=== PATIENT | female | born 1950 | race Caucasian/White ===

== ENCOUNTER → 2017-09-06 | Outpatient (CLI) | payer OTHER | LOC: FIMAGING 12:43 | PROVIDERS: ATTEND Orthopaedic Surgery | DX: Z01.818 Encounter for other preprocedural examination (principal); M17.12 Unilateral primary osteoarthritis, left knee ==

== ENCOUNTER 2017-09-18 06:00 | Inpatient (IN) | payer OTHER ==
[~2017-09-18 06:00] MED LIST: BUPI/epINEPH/KETOROLAC IU ONE; ROPIVACAINE 0.2% 80 MG, EPINEPHrine 0.2 MG, KETOROLAC TROMETHAMINE 30 MG in SYRINGE 0 ML IU ONE; TRANEXAMIC ACID 3,000 MG in NS (SYRINGE) 50 ML IRR ONE
[2017-09-18] MEDS ORDERED: FAMOTIDINE 20 MG TAB PO ONE (06:13)
[2017-09-18] MEDS ORDERED: ceFAZolin 2 GM/SWFI 2 GM/20 ML SYR IVP ONE (06:13)
[2017-09-18] MEDS ORDERED: DEXAMETHASONE 4 MG/ML VIAL IVP ONE (06:13)
[2017-09-18] MEDS ORDERED: ACETAMINOPHEN 325 MG TAB PO ONE (06:13)
[2017-09-18] MEDS ORDERED: LR 1,000 ML IV ONE (06:14)
[2017-09-18] MEDS ORDERED: LIDOCAINE 1% 2 ML INJ ID PRN (06:14)
[2017-09-18] MEDS ORDERED: TRANEXAMIC ACID 3,000 MG/50 ML BAG IRR ONE (06:36)
[2017-09-18] MEDS ORDERED: PROPOFOL/EMULSION 500 MG/50 ML BOTTLE IV ONE (06:50)
[2017-09-18] MEDS ORDERED: MIDAZOLAM 2 MG/2 ML VIAL IVP ONE (06:58)
--- NOTE | 2017-09-18 06:58 | PDANEPAE ---
ANE History of Present Illness here for robotic TKA ANE Past Medical History - Cardiovascular History Hx Hypertension: Yes Hx Arrhythmias: No Hx Chest Pain: No Hx Coronary Artery / Peripheral Vascular Disease: No Hx CHF / Valvular Disease: No Hx Palpitations: No - Pulmonary History Hx COPD: No Hx Asthma/Reactive Airway Disease: No Hx Recent Upper Respiratory Infection: No Hx Oxygen in Use at Home: No Hx Sleep Apnea: No - Neurologic History Hx Cerebrovascular Accident: No Hx Seizures: No Hx Dementia: No - Endocrine History Hx Diabetes: No Endocrine History Comment: HYPOTHYROID - Renal History Hx Renal Disorders: No - Liver History Hx Hepatic Disorders: No - Neurological & Psychiatric Hx Hx Neurological and Psychiatric Disorders: Yes Neurological / Psychiatric History Comment: ANXIETY/DEPRESSION. FIBROMYALGIA - Cancer History Hx Cancer: No - Congenital Disorder History Hx Congenital Disorders: No - GI History Hx Gastrointestinal Disorders: Yes Gastrointestinal History Comment: REFLUX. INTERMITTENT NAUSEA - Other Health History Other Health History: LEG CRAMPS - Chronic Pain History Chronic Pain: Yes (LT KNEE) - Surgical History Prior Surgeries: LUMBAR FUSION 2011. RT SHLDR RTC. DIAG LAP ECTOPIC PREG, ENDOMETROSIS,TUBAL RECONSTRUCTION. RT OVARIAN CYSTECTOMY. HERNAN BUNIONECTOMY X2 ANE Review of Systems Review of Systems: - Exercise capacity METS (RN): 4 METS ANE Patient History - Allergies Allergies/Adverse Reactions: amlodipine Allergy (Verified 09/06/17 16:28) LEG SWELLING hydrochlorothiazide Allergy (Verified 09/06/17 16:28) LEG SWELLING,RASH NSAIDS (Non-Steroidal Anti-Inflamma Allergy (Verified 09/06/17 16:28) OVERLY SENSITIVE - Home Medications Home Medications: Atenolol HS 09/06/17 [Last Taken 09/17/17 20:00] Flonase Nasal Hailey BID 09/06/17 [Last Taken 09/18/17 05:00] LORAZEPAM TID PRN 09/06/17 [Last Taken 09/17/17 22:30] Lomotil Tab (*) PRN 09/06/17 [Last Taken Unknown] Omeprazole BID 09/06/17 [Last Taken 09/18/17 05:00] Promethazine HCl PRN 09/06/17 [Last Taken 09/16/17] Synthroid DAILY06 09/06/17 [Last Taken 09/17/17 03:00] Wellbutrin Xl DAILY06 09/06/17 [Last Taken 09/18/17 05:00] ZYRTEC DAILY06 09/06/17 [Last Taken 09/18/17 05:00] - NPO status NPO Since - Liquids (Date): 09/17/17 NPO Since - Liquids (Time): 23:55 NPO Since - Solids (Date): 09/17/17 NPO Since - Solids (Time): 23:55 - Anes Hx Anes Hx: post operative nausea - Smoking Hx Smoking Status: Never smoked - Alcohol Use Alcohol Use: None - Family Anes Hx Family Anes Hx: none ANE Labs/Vital Signs - Vital Signs Blood Pressure: 135/82 Heart Rate: 72 Respiratory Rate: 16 O2 Sat (%): 97 Height: 157.48 cm Weight: 66.224 kg ANE Physical Exam - Airway Neck exam: FROM Mallampati Score: Class 2 Mouth exam: normal dental/mouth exam - Pulmonary Pulmonary: no respiratory distress, clear to auscultation - Cardiovascular Cardiovascular: regular rate and rhythym, no murmur, rub, or gallop - ASA Status ASA Status: II ANE Anesthesia Plan Anesthesia Plan: GA with mask, spinal Regional Anesthesia: single shot NB, adductor canal FNB Total IV Anesthesia: Yes
--- NOTE | 2017-09-18 07:10 | PDHPUP ---
History & Physical Update H&P update statement: This history and physical update is based on an assessment of the patient which was completed after admission or registration (within 24 hours), but prior to the surgery/procedure. H&P update: H&P reviewed & patient examined, no change in patient's condition since H&P completed
[2017-09-18] MEDS ORDERED: VANCOMYCIN 1 GM VIAL ONE (07:18)
[2017-09-18] MEDS ORDERED: PROPOFOL 200 MG/20 ML VIAL ONE (08:13)
[2017-09-18] MEDS ORDERED: ONDANSETRON DISINTEGRATING 4 MG TAB PO PRN (08:37)
[2017-09-18] MEDS ORDERED: BISACODYL 10 MG SUPP PR PRN (08:37)
[2017-09-18] MEDS ORDERED: POLYETHYLENE GLYCOL 3350 17 GM PKT PO PRN (08:37)
[2017-09-18] MEDS ORDERED: METOCLOPRAMIDE 10 MG/2 ML VIAL IVP PRN (08:37)
[2017-09-18] MEDS ORDERED: PROMETHAZINE HCL 25 MG/ML INJ IVP PRN (08:37)
[2017-09-18] MEDS ORDERED: ONDANSETRON 4 MG/2 ML VIAL IVP PRN ×2 (08:37→08:58)
[2017-09-18] MEDS ORDERED: PROMETHAZINE HCL 25 MG SUPPR PR PRN (08:37)
[2017-09-18] MEDS ORDERED: MAGNESIUM HYDROXIDE 30 ML UDCUP PO PRN (08:37)
[2017-09-18] MEDS ORDERED: TEMAZEPAM 15 MG CAP PO PRN (08:37)
[2017-09-18] MEDS ORDERED: DIPHENOXYLATE/ATROPINE LOMOTIL 1 TAB PO PRN ×2 (08:37→12:42)
[2017-09-18] MEDS ORDERED: diphenhydrAMINE 25 MG CAP PO PRN (08:37)
[2017-09-18] MEDS ORDERED: LACTULOSE 20 GM/30 ML UDCUP PO PRN (08:37)
--- NOTE | 2017-09-18 08:44 | POSTOPPROG ---
Post Op Note Date of Operation: 09/18/17 Surgeon: Prudence Ruiz Mule Packer: dipti ruiz Anesthesiologist: dr. victoria Anesthesia: Spinal Pre-op Diagnosis: left knee OA Post-op Diagnosis: same Indication: left knee pain due to OA that failed conservative measures Procedure: L TKA robot assisted Findings: severe knee OA Inf/Abcess present in the surg proc area at time of surgery?: No EBL: 50-100
[2017-09-18] MEDS ORDERED: ACETAMINOPHEN 500 MG TAB PO PRN (08:58)
[2017-09-18] MEDS ORDERED: fentaNYL 100 MCG/2 ML INJ IVP PRN (08:58)
[2017-09-18] MEDS ORDERED: NALOXONE HCL 0.4 MG/ML INJ IVP PRN (08:58)
[2017-09-18] MEDS ORDERED: OXYCODONE/APAP 5/325 TAB PO PRN (08:58)
[2017-09-18] MEDS ORDERED: LR 1,000 ML IV SCH (09:00)
[2017-09-18] MEDS ORDERED: ASPIRIN 81 MG CHEWABLE TAB PO SCH (09:00)
--- NOTE | 2017-09-18 09:00 | POSTANESTH ---
Post Anesthetic Evaluation Cardiovascular Status: Normal, Stable, Similar to Pre-Op Cond Respiratory Status: Normal, Stable, Similar to Pre-op Cond. Level of Consciousness/Mental Status: Can Participate in Eval, Alert and Oriented Pain Control: Adequate, Prn Tx Ordered Nausea/Vomiting Control: Adequate, Prn Tx Ordered Complications Possibly Related to Anesthesia: None Noted
[2017-09-18] MEDS ORDERED: OXYCODONE/APAP 5/325 TAB ONE (09:45)
[2017-09-18] MEDS ORDERED: PETROLAT,WHT/MIN OIL/SOD CHL 3.5 GM OPHT.OINT EACHEYE PRN (09:57)
[2017-09-18] MEDS: SENNOSIDES/DOCUSATE SODIUM TAB PO SCH ×2 (10:32→20:25)
[2017-09-18] MEDS: ACETAMINOPHEN 325 MG TAB PO SCH ×2 (11:56→17:42)
[2017-09-18] MEDS ORDERED: AMITRIPTYLINE PO PRN (12:42)
[2017-09-18] MEDS ORDERED: CHLORDIAZEPOXIDE PO PRN (12:42)
[2017-09-18] MEDS ORDERED: LORazepam 1 MG TAB PO PRN (12:42)
[2017-09-18] MEDS: ceFAZolin 2 GM/SWFI 2 GM/20 ML SYR IVP SCH ×2 (13:27→21:57)
[2017-09-18] MEDS: oxyCODONE IR 5 MG TAB PO PRN ×4 (13:28→21:17)
[2017-09-18] MEDS ORDERED: ceFAZolin 2 GM/DEXTROSE 100 ML IV SCH (14:00)
--- NOTE | 2017-09-18 16:59 | GOP ---
[f rep st] OPERATIVE REPORT DATE OF OPERATION: 09/18/2017 SURGEON: Sahara Metzger MD SAUTE CHEF: Maisha Metzger PA-C. ANESTHESIA: Spinal. PREOPERATIVE DIAGNOSIS: Left knee osteoarthritis. POSTOPERATIVE DIAGNOSIS: Left knee osteoarthritis. PROCEDURE PERFORMED: FINDINGS: ESTIMATED BLOOD LOSS: 30 cc. Patient is a 67-year-old female. DESCRIPTION OF PROCEDURE: Left total knee arthroplasty, robotic assist. TOURNIQUET: 250 mmHg. semi-flexed superior pole of the patella shows a type 2 VMO pathology, severe lateral singh llofemoral osteoarthritis, size 3 femur, size 3 tibia, 32 mm patellar button, 9 mm polyethylene cemen hayley components. /[id number]/MODL
[2017-09-18] MEDS: CYCLOBENZAPRINE 10 MG TAB PO PRN (20:24)
[2017-09-18] MEDS: FAMOTIDINE 20 MG TAB PO SCH (20:24)
[2017-09-18] MEDS: PANTOPRAZOLE SODIUM 40 MG TAB PO SCH (20:24)
[2017-09-18] MEDS: ASPIRIN 81 MG CHEWABLE TAB PO SCH (20:25)
[2017-09-18] MEDS ORDERED: ATENOLOL 50 MG TAB PO SCH (21:00)
[2017-09-19] MEDS: ACETAMINOPHEN 325 MG TAB PO SCH ×3 (00:34→12:14)
[2017-09-19] MEDS: oxyCODONE IR 5 MG TAB PO PRN ×5 (00:36→15:18)
[2017-09-19] MEDS ORDERED: LEVOTHYROXINE 25 MCG TAB PO SCH (06:00)
--- NOTE | 2017-09-19 08:47 | SOAPPROG ---
SOAP Progress Note Assessment/Plan: Assessment: Patient is doing well POD 1 s/p L TKA 1) pain management: pain is well controlled on oral pain meds especially since she did not receive an adductor canal block yesterday. She has not taken max amount of oxycodone ordered, yet pain is well controlled and patient is resting comfortably 2) VTE ppx: recommend ASA 81 mg BID for 4 weeks 3) anemia: level expected initially postop. asymptomatic. continue to monitor 4) drop foot:difficulty dorsiflexion on left foot. most likely due to periarticular injection during surgery. Some confusion as to what leg per nurse. Currently appears to be left foot. This usually wears off 24 hours from surgery. continue to monitor. Progress with walking when safe to do so. Patient is afraid of putting weight on surgical leg, encouraged patient to put weight. There are no restrictions on weight bearing status. 5) Fibromyalgia: patient states that it has flared since surgery. She was on norco several months prior to surgery due to fibromyalgia. patient was seen by chronic pain clinic prior to surgery who recommended lyrica, patient states she gained weight with gabapentin and does not want to try. Patient states she was evaluated by Dr. Jackson, a psychiatrist, who will help her manage fibromyalgia postoperatively along with her PCP. 6) d/c planning: patient's pain is well controlled, recommend patient work with PT today, will most likely need morning and afternoon session. may d/c to home pending release from PT. 7) inpatient: patient requires inpatient status due to pain control, therapy, unsafe yesterday for d/c to home. Plan: 09/19/17 08:36 09/19/17 08:49 09/19/17 08:49 Subjective: Dinora is doing well, pain well controlled, denies SOB, chest pain and N/V. state fibromyalgia has flared since surgery Objective: Vital Signs Temp Pulse Resp BP Pulse Ox 36.7 C 70 16 144/76 H 96 09/19/17 08:00 09/19/17 08:00 09/19/17 08:00 09/19/17 08:00 09/19/17 08:00 Laboratory Results 09/19/17 04:54 09/18/17 09/19/17 09/20/17 05:59 05:59 05:59 Intake Total 2520 Output Total 2550 400 Balance -30 -400 LLE: incision dressing is clean and dry, NVI, +pf/df ICD10 Worksheet Patient Problems: Problems Problem Status Onset Primary osteoarthritis of left knee Acute - ICD10 Problem Qualifiers (1) Primary osteoarthritis of left knee
[2017-09-19] MEDS ORDERED: buPROPion XL 150 MG TAB PO SCH (09:00)
[2017-09-19] MEDS ORDERED: FLUTICASONE NASAL 120 SPRAYS/16 GM MDI EACHNARE SCH (09:00)
[2017-09-19] MEDS ORDERED: CETIRIZINE 10 MG TAB PO SCH (09:00)
[2017-09-19] MEDS: PANTOPRAZOLE SODIUM 40 MG TAB PO SCH (09:01)
[2017-09-19] MEDS: ASPIRIN 81 MG CHEWABLE TAB PO SCH (09:03)
[2017-09-19] MEDS: FAMOTIDINE 20 MG TAB PO SCH (09:04)
[2017-09-19] MEDS: SENNOSIDES/DOCUSATE SODIUM TAB PO SCH (09:04)
--- NOTE | 2017-09-19 09:37 | PDMN ---
Medical Necessity Medical necessity: Change to IP, as of 09/18/17, per PA; los >2 mn s/p L TKA; pt currently unsafe to dc home; admit for further monitoring of L drop foot, pain management & therapies; per progress note & order 09/18/17
[2017-09-19] MEDS: CYCLOBENZAPRINE 10 MG TAB PO PRN (11:21)
[2017-09-19 12:04] VITALS: RESP 14
--- NOTE | 2017-09-19 13:48 | GDS ---
[f rep st] DISCHARGE SUMMARY ADMISSION DIAGNOSIS: Left knee osteoarthritis. DISCHARGE DIAGNOSIS: Left knee osteoarthritis. PROCEDURE: Left total knee arthroplasty, robot assisted. VTE PROPHYLAXIS: Recommend aspirin 81 mg twice daily for 4 weeks. BRIEF DESCRIPTION OF HOSPITAL STAY: Patient was admitted for an elective joint arthroplasty. The pa maximino tolerated the procedure well and has passed physical therapy. The patient was given appropriat e antibiotic prophylaxis and venous thromboembolism prophylaxis. The patient's pain was well control led on oral pain medication, patient was holding down food, and had urinated. Decision was made to d ischarge the patient. The patient was given post-operative prescriptions pre-operatively. PLAN: Follow up as scheduled Dr. Metzger's office in 2 weeks. /[id number]/MODL
[2017-09-19 15:04] VITALS: BP 133/80; PULSE 82; TEMP 97.5; O2SAT 97
== END 2017-09-19 17:32 | disposition home or self-care (01) | DRG 470 ==
LOC: F3N 06:00 → OBSVTOIN 11:38
PROVIDERS: ADMIT Orthopaedic Surgery; ATTEND Orthopaedic Surgery
PROC: 8E0Y0CZ Robotic Assisted Procedure of Lower Extremity, Open Approach (ICD-10-PCS; principal; 2017-09-18 07:15)
PROC: 0SRD0J9 Replacement of Left Knee Joint with Synthetic Substitute, Cemented, Open Approach (ICD-10-PCS; principal; 2017-09-18 07:15)
DX: M17.12 Unilateral primary osteoarthritis, left knee (principal); M79.7 Fibromyalgia
CPT/HCPCS: 97110-GP; 97116-GP; 97161-GP; 97166-GO; 97530-GP; 97535-GO; C1713; G8978-GP-CJ; G8979-GP-CI; G8980-GP-CI; G8987-GO-CI; G8988-GO-CI; J0171; J0690; J1100; J1885; J2250; J2704; J3370

== ENCOUNTER → 2017-11-14 | Outpatient (CLI) | payer OTHER | LOC: BMCIMAGING 11:25 | PROVIDERS: ATTEND Internal Medicine | DX: M79.671 Pain in right foot (principal); M19.071 Primary osteoarthritis, right ankle and foot ==

== ENCOUNTER → 2018-01-20 | Outpatient (CLI) | payer OTHER | LOC: BMCIMAGING 10:25 | PROVIDERS: ATTEND Internal Medicine | DX: N63.13 Unspecified lump in the right breast, lower outer quadrant (principal); R92.8 Other abnormal and inconclusive findings on diagnostic imaging of breast ==

== ENCOUNTER → 2018-02-10 | Outpatient (CLI) | payer OTHER ==
[~2018-02-10] MED LIST changes: -BUPI/epINEPH/KETOROLAC IU ONE; +BUPIVACAINE 0.5% 10 ML SDV ONE; +LIDOCAINE 1% 300 MG/30 ML SDV ONE; -ROPIVACAINE 0.2% 80 MG, EPINEPHrine 0.2 MG, KETOROLAC TROMETHAMINE 30 MG in SYRINGE 0 ML IU ONE; +THROMBIN (BOVINE) 5,000 UNIT VIAL TP ONE; -TRANEXAMIC ACID 3,000 MG in NS (SYRINGE) 50 ML IRR ONE
== END ==
LOC: FIMAGING 07:30
PROVIDERS: ATTEND Internal Medicine
PROC: 0HBT3ZX Excision of Right Breast, Percutaneous Approach, Diagnostic (ICD-10-PCS; principal; 2018-02-10)
DX: N60.11 Diffuse cystic mastopathy of right breast (principal); Z80.3 Family history of malignant neoplasm of breast

== ENCOUNTER → 2018-05-01 | Outpatient (CLI) | payer OTHER | LOC: FIMAGING 11:37 | PROVIDERS: ATTEND Internal Medicine | DX: Z13.820 Encounter for screening for osteoporosis (principal); M85.89 Other specified disorders of bone density and structure, multiple sites; E03.9 Hypothyroidism, unspecified; Z78.0 Asymptomatic menopausal state ==

== ENCOUNTER → 2018-05-26 | Outpatient (CLI) | payer OTHER | LOC: FIMAGING 10:46 | PROVIDERS: ATTEND Orthopaedic Surgery | DX: M17.11 Unilateral primary osteoarthritis, right knee (principal) ==

== ENCOUNTER 2018-06-18 05:59 | Inpatient (IN) | payer OTHER ==
[2018-06-18] MEDS ORDERED: TRANEXAMIC ACID 3,000 MG in NS (SYRINGE) 50 ML IRR ONE (06:00)
[2018-06-18] MEDS ORDERED: ROPIVACAINE 0.2% 80 MG, EPINEPHrine 0.2 MG, KETOROLAC TROMETHAMINE 30 MG in SYRINGE 0 ML IU ONE (06:00)
[2018-06-18] MEDS ORDERED: DEXAMETHASONE 4 MG/ML VIAL IVP ONE (06:02)
[2018-06-18] MEDS ORDERED: FAMOTIDINE 20 MG TAB PO ONE (06:02)
[2018-06-18] MEDS ORDERED: ACETAMINOPHEN 325 MG TAB PO ONE (06:02)
[2018-06-18] MEDS ORDERED: ceFAZolin 2 GM/DEXTROSE 100 ML IV ONE (06:02)
[2018-06-18] MEDS ORDERED: LR 1,000 ML IV ONE (06:04)
[2018-06-18] MEDS ORDERED: TRANEXAMIC ACID 3,000 MG/50 ML BAG IRR ONE (06:50)
[2018-06-18] MEDS ORDERED: VANCOMYCIN 500 MG/10 ML VIAL IV ONE (06:50)
[2018-06-18] MEDS ORDERED: MIDAZOLAM 2 MG/2 ML VIAL IVP ONE (06:52)
--- NOTE | 2018-06-18 06:54 | PDANEPAE ---
ANE Past Medical History - Cardiovascular History Hx Hypertension: Yes Hx Arrhythmias: No Hx Chest Pain: No Hx Coronary Artery / Peripheral Vascular Disease: No Hx CHF / Valvular Disease: No Hx Palpitations: No - Pulmonary History Hx COPD: No Hx Asthma/Reactive Airway Disease: No Hx Recent Upper Respiratory Infection: No Hx Sleep Apnea: No Sleep Apnea Screening Result - Last Documented: Negative Pulmonary History Comment: CHRONIC POST NASAL DRIP AND COUGH - Neurologic History Hx Cerebrovascular Accident: No Hx Seizures: No Hx Dementia: No - Endocrine History Hx Diabetes: No Obesity: moderate Endocrine History Comment: HYPOTHYROID - Renal History Hx Renal Disorders: No - Liver History Hx Hepatic Disorders: No - Neurological & Psychiatric Hx Hx Neurological and Psychiatric Disorders: Yes Neurological / Psychiatric History Comment: ANXIETY/DEPRESSION. FIBROMYALGIA - Cancer History Hx Cancer: No - Congenital Disorder History Hx Congenital Disorders: No - GI History GERD: moderate Hx Gastrointestinal Disorders: Yes Gastrointestinal History Comment: REFLUX. INTERMITTENT NAUSEA - Other Health History Other Health History: CHRONIC PAIN RELATED TO FIBROMYALGIA - Chronic Pain History Chronic Pain: Yes (FIBROMYALGIA,RT KNEE) - Surgical History Prior Surgeries: LT TOTAL KNEE 09/2017. LUMBAR FUSION 2011. RT SHLDR RTC. DIAG LAP ECTOPIC PREG,ENDOMETROSIS,TUBAL RECONSTRUCTION. RT OVARIAN CYSTECTOMY. HERNAN BUNIONECTOMY X2 ANE Review of Systems Review of Systems: - Exercise capacity METS (RN): 4 METS ANE Patient History - Allergies Allergies/Adverse Reactions: amlodipine Allergy (Verified 09/06/17 16:28) LEG SWELLING hydrochlorothiazide Allergy (Verified 09/06/17 16:28) LEG SWELLING,RASH - Home Medications Home medications: home medication list seen and reviewed Home Medications: Atenolol [Tenormin 50 mg (*)] 50 mg PO HS 09/06/17 [Last Taken 06/17/18] Fluticasone Nasal [Flonase Nasal [place]] 1 sprays NASAL BID PRN 09/06/17 [Last Taken 06/18/18 05:00] LORazepam [Ativan (*)] 1 mg PO DAILY PRN 09/06/17 [Last Taken 06/18/18 05:00] Levothyroxine [Synthroid 25 mcg (*)] 25 mcg PO DAILY06 09/06/17 [Last Taken 11/29 05:00] Omeprazole 40 mg PO BID 09/06/17 [Last Taken 06/18/18 05:00] Promethazine HCl [Phenergan 12.5mg tab] 12.5 mg PO Q4HRS PRN 09/06/17 [Last Taken 06/18/18 05:00] buPROPion XL [Wellbutrin 150mg XL] 300 mg PO DAILY 09/06/17 [Last Taken 05:00] Ranitidine HCl [Zantac 75] 75 mg PO DAILY 09/18/17 [Last Taken 06/17/18] SUMAtriptan [Imitrex 50 MG (*)] 50 mg PO DAILY PRN 02/07/18 [Last Taken 06/17/18 ] Albuterol [Proventil Inhaler HFA (*)] 2 puffs IH Q4H PRN 06/11/18 [Last Taken ] Aspirin [Aspirin 81mg (*)] 81 mg PO DAILY 06/11/18 [Last Taken Unknown] Diclofenac Sodium 1% [Voltaren Gel (*)] 1 chari TP QID PRN 06/11/18 [Last Taken 2 Weeks Ago ~06/04/18] Ipratropium 0.03% Nasal [Atrovent 0.03% Nasal (*)] 2 sprays EACHNARE BID PRN [Last Taken 06/18/18 05:00] LORazepam [Ativan (*)] 2 mg PO HS 06/11/18 [Last Taken 06/17/18] Losartan Potassium 100 mg PO HS 06/11/18 [Last Taken 06/16/18] Meloxicam 15 mg PO HS 06/11/18 [Last Taken 2 Weeks Ago ~06/04/18] Ondansetron HCl [Zofran] 4 mg PO Q6HRS PRN 06/11/18 [Last Taken 06/17/18] P-EPHED HCL/FEXOFENADINE HCL [SHARAN-D 12 HOUR TABLET] 1 each PO DAILY [Last Taken 06/18/18 05:00] Propylene Glycol/Peg 400/Pf [Systane 0.3-0.4% Eye Drops] 1 each OP DAILY PRN [Last Taken 06/18/18 05:00] celeCOXIB [Celebrex (*)] 200 mg PO DAILY18 06/11/18 [Last Taken 06/17/18] guaiFENesin/DEXTROMETHORPHAN [Robafen-Dm Syrup] 5 - 10 ml PO DAILY PRN 06/11/18 [Last Taken 06/18/18 05:00] oxyCODONE IR [Oxycodone Ir (*)] 5 - 10 mg PO Q4HRS PRN 06/11/18 [Last Taken Unknown] - NPO status NPO Status: no food or drink >8 hours NPO Since - Liquids (Date): 06/18/18 NPO Since - Liquids (Time): 05:00 NPO Since - Solids (Date): 06/18/18 NPO Since - Solids (Time): 00:00 - Anes Hx Anes Hx: no prior problems - Smoking Hx Smoking Status: Never smoked ANE Labs/Vital Signs - Vital Signs Blood Pressure: 163/98 Heart Rate: 75 Respiratory Rate: 18 O2 Sat (%): 98 Height: 157.48 cm Weight: 68.946 kg ANE Physical Exam - Airway Neck exam: FROM Mallampati Score: Class 2 Mouth exam: normal dental/mouth exam - Pulmonary Pulmonary: no respiratory distress, no rales or rhonchi, clear to auscultation - Cardiovascular Cardiovascular: regular rate and rhythym, no murmur, rub, or gallop - ASA Status ASA Status: II ANE Anesthesia Plan Anesthesia Plan: spinal Regional Anesthesia: adductor canal FNB
[2018-06-18] MEDS ORDERED: BUPIVACAINE/EPI 0.25% 30 ML SDV ONE (07:05)
[2018-06-18] MEDS ORDERED: BUPIVACAINE 0.75% 10 ML SDV ONE (07:06)
[2018-06-18] MEDS ORDERED: fentaNYL 100 MCG/2 ML INJ ONE (07:07)
[2018-06-18] MEDS ORDERED: PROPOFOL/EMULSION 500 MG/50 ML BOTTLE IV ONE (07:07)
[2018-06-18] MEDS ORDERED: VANCOMYCIN 1 GM VIAL ONE (07:23)
[2018-06-18] MEDS ORDERED: Propylene Glycol/Peg 400/Pf [Systane 0.3-0.4% Eye Drop] 1 EACH OP PRN (07:26)
[2018-06-18] MEDS ORDERED: DEXAMETHASONE 4 MG/ML VIAL ONE ×2 (07:27)
[2018-06-18] MEDS ORDERED: ENALAPRILAT DIHYDRATE 1.25 MG/ML VIAL IVP PRN (07:42)
[2018-06-18] MEDS ORDERED: NALOXONE HCL 0.4 MG/ML INJ IVP PRN (07:42)
[2018-06-18] MEDS ORDERED: ACETAMINOPHEN 500 MG TAB PO PRN (07:42)
[2018-06-18] MEDS ORDERED: ONDANSETRON 4 MG/2 ML VIAL IVP PRN ×2 (07:42→08:41)
[2018-06-18] MEDS ORDERED: PROMETHAZINE HCL 25 MG/ML INJ IVP PRN ×2 (07:42→08:41)
[2018-06-18] MEDS ORDERED: oxyCODONE IR 5 MG TAB PO PRN (07:42)
[2018-06-18] MEDS ORDERED: LABETALOL HCL 20 MG/4 ML INJ IVP PRN (07:42)
[2018-06-18] MEDS ORDERED: HYDROCODONE/APAP 5/325 TAB PO PRN (07:42)
[2018-06-18] MEDS ORDERED: LR 500 ML IV PRN (07:42)
[2018-06-18] MEDS ORDERED: fentaNYL 100 MCG/2 ML INJ IVP PRN (07:42)
[2018-06-18] MEDS ORDERED: ALBUTEROL 60 PUFFS/8 GM MDI IH PRN (07:45)
[2018-06-18] MEDS ORDERED: METOCLOPRAMIDE 10 MG/2 ML VIAL IVP PRN (08:41)
[2018-06-18] MEDS ORDERED: TEMAZEPAM 15 MG CAP PO PRN (08:41)
[2018-06-18] MEDS ORDERED: MAGNESIUM HYDROXIDE 30 ML UDCUP PO PRN (08:41)
[2018-06-18] MEDS ORDERED: PROMETHAZINE HCL 25 MG SUPPR PR PRN (08:41)
[2018-06-18] MEDS ORDERED: BISACODYL 10 MG SUPP PR PRN (08:41)
[2018-06-18] MEDS ORDERED: DIPHENOXYLATE/ATROPINE LOMOTIL 1 TAB PO PRN (08:41)
[2018-06-18] MEDS ORDERED: ONDANSETRON DISINTEGRATING 4 MG TAB PO PRN (08:41)
[2018-06-18] MEDS ORDERED: LACTULOSE 20 GM/30 ML UDCUP PO PRN (08:41)
[2018-06-18] MEDS ORDERED: POLYETHYLENE GLYCOL 3350 17 GM PKT PO PRN (08:41)
[2018-06-18] MEDS ORDERED: diphenhydrAMINE 25 MG CAP PO PRN (08:41)
--- NOTE | 2018-06-18 08:41 | POSTOPPROG ---
Post Op Note Date of Operation: 06/18/18 Surgeon: Prudence Ruiz Guitar Maker: dipti ruiz PA-C Anesthesiologist: dr. armenta Anesthesia: Spinal, Other (Specify) (adductor canal block) Pre-op Diagnosis: right knee OA Post-op Diagnosis: same Indication: R knee pain Procedure: R TKA robot assisted, sensor assisted Findings: severe knee OA Inf/Abcess present in the surg proc area at time of surgery?: No EBL: 50-100
[2018-06-18] MEDS ORDERED: LR 1,000 ML IV SCH (09:00)
--- NOTE | 2018-06-18 09:04 | POSTANESTH ---
Post Anesthetic Evaluation Cardiovascular Status: Normal, Stable, Similar to Pre-Op Cond Respiratory Status: Normal, Stable, Similar to Pre-op Cond. Level of Consciousness/Mental Status: Can Participate in Eval, Alert and Oriented Pain Control: Adequate, Prn Tx Ordered (Rt adductor canal nerve block performed in PACU with U/S guidance, 15 ml 0.25% bupiv + epi, no evident complications.) Nausea/Vomiting Control: Adequate, Prn Tx Ordered Complications Possibly Related to Anesthesia: None Noted
[2018-06-18] MEDS: SENNOSIDES/DOCUSATE SODIUM TAB PO SCH ×2 (09:06→21:39)
--- NOTE | 2018-06-18 09:37 | PDMN ---
Medical Necessity Medical necessity: Pt meets IP criteria as of 06/18/2018 per PA for L TKA; est los > 2 mn for concern for pain control and nausea post-op, fibromyalgia, and HTN.
[2018-06-18] MEDS: oxyCODONE IR 5 MG TAB PO PRN ×5 (10:09→21:43)
[2018-06-18] MEDS: CYCLOBENZAPRINE 10 MG TAB PO PRN ×2 (10:09→19:39)
[2018-06-18] MEDS ORDERED: IPRATROPIUM 0.03% NASAL SPRAY EACHNARE PRN (10:15)
[2018-06-18] MEDS: ACETAMINOPHEN 325 MG TAB PO SCH ×3 (12:15→23:24)
[2018-06-18] MEDS: ceFAZolin 2 GM/DEXTROSE 100 ML IV SCH ×2 (14:06→21:37)
[2018-06-18] MEDS ORDERED: FLUTICASONE NASAL 120 SPRAYS/16 GM MDI EACHNARE PRN (21:00)
[2018-06-18] MEDS: LORazepam 1 MG TAB PO SCH (21:37)
[2018-06-18] MEDS: LOSARTAN POTASSIUM 50 MG TAB PO SCH (21:38)
[2018-06-18] MEDS: FAMOTIDINE 20 MG TAB PO SCH (21:38)
[2018-06-18] MEDS: ASPIRIN 81 MG CHEWABLE TAB PO SCH (21:38)
[2018-06-18] MEDS: ATENOLOL 50 MG TAB PO SCH (21:39)
[2018-06-19] MEDS: ACETAMINOPHEN 325 MG TAB PO SCH ×3 (05:50→18:15)
[2018-06-19] MEDS: oxyCODONE IR 5 MG TAB PO PRN ×3 (05:51→16:50)
[2018-06-19] MEDS: LEVOTHYROXINE 25 MCG TAB PO SCH (05:51)
[2018-06-19] MEDS ORDERED: SUMAtriptan 50 MG TAB PO PRN (07:26)
[2018-06-19] MEDS ORDERED: LORazepam 1 MG TAB PO PRN (07:26)
--- NOTE | 2018-06-19 08:48 | GOP ---
DATE OF OPERATION: 06/18/2018 SURGEON: Sahara Metzger MD TRAFFIC COUNTER: Maisha Metzger, CALEB. ANESTHESIA: Spinal. PREOPERATIVE DIAGNOSIS: Right knee osteoarthritis. POSTOPERATIVE DIAGNOSIS: Right knee osteoarthritis. PROCEDURE PERFORMED: Right total knee arthroplasty with computer navigation, robotic assist. FINDINGS: ESTIMATED BLOOD LOSS: 30 cc. INDICATIONS: The patient is a 67-year-old female with severe and progressive pain and deformity of t he right knee unresponsive to conservative care. The risks and benefits of surgical intervention wer e explained in detail. DESCRIPTION OF PROCEDURE: The patient was brought to the operative room and placed on the table in t he supine position. Spinal anesthesia was induced without difficulty. A pneumatic tourniquet was appl ied about the right proximal thigh, and the leg was prepped and draped in a sterile fashion. The leg correia was applied. After exsanguination by elevation the tourniquet was inflated to 250 mmHg. Incision was made anterior medial from the tibial tuberosity to a point 2 cm proximal to the superior pole of the patella. Medial parapatellar arthrotomy was carried out from the superior pole of the pa tella and posteriorly in line with the fibers of the Type II VMO. The medial collateral ligament was elevated and the infrapatellar fat pad was resected. The patella was everted and the articular surface was excised. A 32 mm patellar button was placed. Attention was turned first to the distal aspect of the femur. After exposure of the femur, 2 half pi ns were placed for fixation of the femoral array. In a similar fashion, 2 pins were placed anteromed ial on the tibia for fixation of the tibial array. External land marking and registration of the hip center was performed without difficulty. Internal femoral and tibial registration was carried out w ithout difficulty and the femoral and tibial checkpoints were placed and verified for accuracy. Attention was turned to the femur. The foot print for the size 3 femoral component was cut with the saw using the [employer] robotic system and verified for accuracy against the CT based plan. In a similar f ashion, the saw was used to cut the footprint for the size 3 tibial component using the [employer] system an d verified for accuracy against the CT based plan. The tibial articular surface was excised without d ifficulty, followed by the intercondylar box cut. The knee was extended and the remnants of the medial and lateral meniscus were excised. The posterior capsule was injected with ropivacaine, epinephrine and Toradol. A size 3 tibial tray was positioned . Trial reduction was then carried out. There was excellent range of motion, alignment, and stability using the 3 x 9 mm polyethylene. All trials were then removed. The joint was thoroughly irrigated and carefully dried. The cemented co mponents were implanted. The permanent 9 mm polyethylene was placed without difficulty. The tourniquet was deflated and all bleeders were coagulated. The wound was thoroughly irrigated and closed using interrupted sutures of 2-0 Vicryl for the joint capsule. The subcu was closed with 3-0 V icryl and the skin with 4-0 Monocryl. Dermabond and Steri-Strips were applied followed by a compress navid dressing. The patient was then moved from the operating room to the recovery room in good conditi on, having tolerated the procedure well. PATHOLOGY: Severe medial and patellofemoral osteoarthritis. /[id number]/MODL
--- NOTE | 2018-06-19 08:53 | SOAPPROG ---
SOAP Progress Note Assessment/Plan: Assessment: Patient is doing well POD 1 s/p R TKA Pain management: pain is well controlled on oral pain meds. VTE ppx: recommend aspirin 81 mg BID for 4 weeks, cont RADHA and SCDs Anemia: level is expected initially postop. Asymptomatic. Continue to monitor D/c planning: Patient has done better than anticipated, but adductor canal nerve block is still working and covering a significant portion of pain. Patient asked aobut discharge to home today and stated that it was reasonable as long she understood that the pain will worsen as the nerve block wears off. patient would like to recover more before making a decision. Discussed with patient that she can stay another night for pain management. Patient must be released from PT before discharge to home. Will not discharge to home unless nurse calls me and patient is motivated to go home today. Plan: 06/19/18 08:51 Subjective: cesar is doing well, mod pain, denies SOB ,chest pain and N/V Objective: Vital Signs Temp Pulse Resp BP Pulse Ox 36.3 C 84 16 129/80 H 94 06/19/18 07:30 06/19/18 07:30 06/19/18 07:30 06/19/18 07:30 06/19/18 07:30 Laboratory Results 06/19/18 05:21 06/18/18 06/19/18 06/20/18 05:59 05:59 05:59 Intake Total 2800 450 Output Total 3650 Balance -850 450 RLE; incision dressing is clean and dry, NVI, +pf/df ICD10 Worksheet Patient Problems: Problems Problem Status Onset Primary osteoarthritis of left knee Acute
[2018-06-19] MEDS: SENNOSIDES/DOCUSATE SODIUM TAB PO SCH ×2 (09:08→20:08)
[2018-06-19] MEDS: buPROPion XL 150 MG TAB PO SCH (09:08)
[2018-06-19] MEDS: FAMOTIDINE 20 MG TAB PO SCH ×2 (09:08→20:08)
[2018-06-19] MEDS: PANTOPRAZOLE SODIUM 40 MG TAB PO SCH ×2 (09:08→20:08)
[2018-06-19] MEDS: ASPIRIN 81 MG CHEWABLE TAB PO SCH ×2 (09:08→20:08)
[2018-06-19] MEDS: CYCLOBENZAPRINE 10 MG TAB PO PRN (18:15)
[2018-06-19] MEDS: ATENOLOL 50 MG TAB PO SCH (20:06)
[2018-06-19] MEDS: LORazepam 1 MG TAB PO SCH (20:07)
[2018-06-19] MEDS: LOSARTAN POTASSIUM 50 MG TAB PO SCH (20:08)
[2018-06-20] MEDS: oxyCODONE IR 5 MG TAB PO PRN ×4 (00:42→12:30)
[2018-06-20] MEDS: ACETAMINOPHEN 325 MG TAB PO SCH ×3 (00:43→12:30)
[2018-06-20] MEDS: CYCLOBENZAPRINE 10 MG TAB PO PRN ×2 (04:39→12:40)
[2018-06-20] MEDS: LEVOTHYROXINE 25 MCG TAB PO SCH (06:29)
[2018-06-20 07:51] VITALS: BP 125/74
[2018-06-20] MEDS: FAMOTIDINE 20 MG TAB PO SCH (08:51)
[2018-06-20] MEDS: ASPIRIN 81 MG CHEWABLE TAB PO SCH (08:52)
[2018-06-20] MEDS: PANTOPRAZOLE SODIUM 40 MG TAB PO SCH (08:52)
[2018-06-20] MEDS: buPROPion XL 150 MG TAB PO SCH (08:52)
[2018-06-20] MEDS: SENNOSIDES/DOCUSATE SODIUM TAB PO SCH (08:53)
--- NOTE | 2018-06-20 12:37 | SOAPPROG ---
SOAP Progress Note Assessment/Plan: Assessment: Patient is doing well POD 2 s/p R TKA Pain management: pain is well controlled on oral pain meds. VTE ppx: recommend aspirin 81 mg BID for 4 weeks, cont RADHA and SCDs Anemia: level is expected initially postop. Asymptomatic. Continue to monitor D/c planning: ok for discharge to home today Plan: 06/19/18 08:51 06/20/18 12:35 Subjective: patient is doing well, pain is managed on oral pain meds Objective: Vital Signs Temp Pulse Resp BP Pulse Ox 36.4 C 71 16 125/74 H 95 06/20/18 07:50 06/20/18 07:50 06/20/18 07:50 06/20/18 07:50 06/20/18 07:50 Laboratory Results 06/20/18 05:19 06/19/18 06/20/18 06/21/18 05:59 05:59 05:59 Intake Total 2800 2060 Output Total 3650 801 Balance -850 1259 incision dressing is clean and dry ICD10 Worksheet Patient Problems: Problems Problem Status Onset Primary osteoarthritis of left knee Acute
== END 2018-06-20 14:51 | disposition home or self-care (01) | DRG 470 ==
LOC: F3N 05:59
PROVIDERS: ADMIT Orthopaedic Surgery; ATTEND Orthopaedic Surgery
PROC: 8E0YXBZ Computer Assisted Procedure of Lower Extremity (ICD-10-PCS; principal; 2018-06-18 07:15)
PROC: 8E0Y0CZ Robotic Assisted Procedure of Lower Extremity, Open Approach (ICD-10-PCS; principal; 2018-06-18 07:15)
PROC: 0SRC0J9 Replacement of Right Knee Joint with Synthetic Substitute, Cemented, Open Approach (ICD-10-PCS; principal; 2018-06-18 07:15)
DX: M17.11 Unilateral primary osteoarthritis, right knee (principal); I10 Essential (primary) hypertension; E03.9 Hypothyroidism, unspecified; F41.8 Other specified anxiety disorders; K21.9 Gastro-esophageal reflux disease without esophagitis; Z96.652 Presence of left artificial knee joint; Z98.1 Arthrodesis status
CPT/HCPCS: 97110-GP; 97116-GP; 97161-GP; 97530-GP; C1713; G8978-GP-CJ; G8979-GP-CI; G8980-GP-CI; J0171; J0690; J1100; J1885; J2250; J2270; J2704; J2795; J3010; J3370

== ENCOUNTER → 2018-08-11 | Outpatient (CLI) | payer OTHER | LOC: BMCIMAGING 14:31 | PROVIDERS: ATTEND Internal Medicine | DX: R05 Cough (principal) ==

== ENCOUNTER → 2018-09-12 | Outpatient (CLI) | payer OTHER | LOC: FIMAGING 15:09 ==

== ENCOUNTER → 2018-09-21 | Outpatient (CLI) | payer OTHER | LOC: BMCIMAGING 10:35 | PROVIDERS: ATTEND Family Medicine | DX: R05 Cough (principal) ==